=== PATIENT | male | born 1990 | race African-American/Black ===

== ENCOUNTER 2020-06-08 13:20 | Emergency (ER) | payer SELFPAY ==
[~2020-06-08] VITALS: Ht 170.2 cm; Wt 68.2 kg
[2020-06-08 13:43] VITALS: BP 139/77; Ht 170.2 cm; Wt 68.2 kg
[2020-06-08] MEDS ORDERED: ULTRAM50 MG PO (16:04)
[2020-06-08] MEDS ORDERED: ERYTHROMYCIN OPT1 GM EACH EYE (16:04)
== END 2020-06-08 16:23 | disposition home or self-care (01) ==
LOC: D.ER 13:20
DX: S05.01XA Injury of conjunctiva and corneal abrasion without foreign body, right eye, initial encounter (principal); W50.0XXA Accidental hit or strike by another person, initial encounter; Y93.9 Activity, unspecified; Y92.9 Unspecified place or not applicable